=== PATIENT | male | born 1970 | race Caucasian/White ===

== ENCOUNTER 2017-10-02 19:52 | Emergency (ER) | payer SELFPAY, BC, OTHER, MEDICAID | END 2017-10-02 23:07 | disposition home or self-care (01) | LOC: M ED 19:52 | DX: J01.91 Acute recurrent sinusitis, unspecified (principal); I10 Essential (primary) hypertension; Z87.09 Personal history of other diseases of the respiratory system | CPT/HCPCS: 71046 ==

== ENCOUNTER 2018-11-05 19:28 | Emergency (ER) | payer MEDICAID, SELFPAY ==
[~2018-11-05] VITALS: Ht 177.8 cm; Wt 109.1 kg
[~2018-11-05 19:28] MED LIST: AUGM875T28 PO; BENA25CA4 PO
[2018-11-05] MEDS ORDERED: NAPR500T6 PO (19:34)
[2018-11-05] MEDS ORDERED: xyzal PO (19:34)
[2018-11-05] MEDS ORDERED: PENI500T PO (20:00)
[2018-11-05] MEDS ORDERED: LISI-538 PO (20:06)
[2018-11-05 20:11] VITALS: BP 170/101
[2018-11-05 20:13] VITALS: BP 152/98
[2018-11-05] MEDS ORDERED: LISINOPRIL 10 MG TAB PO ONE (20:15)
[2018-11-05] MEDS ORDERED: PENICILLIN V POTASSIUM 500 MG TAB PO ONE (20:15)
== END 2018-11-05 20:14 | disposition home or self-care (01) ==
LOC: M ED 19:28
DX: K08.89 Other specified disorders of teeth and supporting structures (principal); R13.10 Dysphagia, unspecified; I10 Essential (primary) hypertension; I51.9 Heart disease, unspecified; Z79.899 Other long term (current) drug therapy

== ENCOUNTER 2019-02-14 02:30 | Emergency (ER) | payer MEDICAID, OTHER ==
[~2019-02-14] VITALS: Ht 177.8 cm; Wt 102.0 kg
[~2019-02-14 02:30] MED LIST changes: +LISI-538 PO; +NAPR500T6 PO; +PENI500T PO; +xyzal PO
[2019-02-14] MEDS ORDERED: BENZOCAINE 20% GEL 9GM TUBE (ANBESOL MAX STRENGTH) TOP ONE (04:15)
[2019-02-14] MEDS ORDERED: LIDOCAINE 2% W/ EPINEPHRINE 1.7 ML DENTAL INJ SM ONE (04:15)
[2019-02-14] MEDS ORDERED: LISI-538 PO (04:28)
[2019-02-14] MEDS ORDERED: CLEO300C2 PO (04:28)
[2019-02-14] MEDS ORDERED: CLINDAMYCIN 150 MG CAP PO ONE (04:30)
[2019-02-14] MEDS ORDERED: LISINOPRIL 20 MG TAB PO ONE (04:30)
[2019-02-14 04:54] VITALS: BP_SYST 174; BP_SYST 178; BP_DIAS 92; BP_DIAS 96
== END 2019-02-14 04:56 | disposition home or self-care (01) ==
LOC: M ED 02:30
DX: S02.5XXA Fracture of tooth (traumatic), initial encounter for closed fracture (principal); X58.XXXA Exposure to other specified factors, initial encounter; Y92.9 Unspecified place or not applicable; Y93.9 Activity, unspecified; Y99.9 Unspecified external cause status

== ENCOUNTER 2022-11-24 17:29 | Emergency (ER) | payer OTHER ==
[~2022-11-24] VITALS: Ht 172.7 cm; Wt 118.7 kg
[~2022-11-24 17:29] MED LIST changes: +CLEO300C2 PO; -LISI-538 PO; +LISI20TA33 PO
[2022-11-24] MEDS ORDERED: CETI10CA13 PO (18:06)
[2022-11-24 18:24] LABS: HEMATOCRIT 41.9 % (42.0-52.0); HEMOGLOBIN 14.5 g/dl (13.5-17.5); MEAN CORPUSCULAR HEMOGLOBIN 28.9 pg (27.0-33.0); MEAN CORPUSCULAR HGB CONC 34.6 g/dl (32.0-36.5); MEAN CORPUSCULAR VOLUME 83.5 fl (80.0-96.0); PLATELET COUNT, AUTOMATED 194 10^3/uL (150-450); RED BLOOD COUNT 5.02 10^6/uL (4.30-6.10); WHITE BLOOD COUNT 4.8 10^3/uL (4.0-10.0)
[2022-11-24 18:51] LABS: ALBUMIN 3.9 G/DL (3.2-5.2); ALKALINE PHOSPHATASE 69 U/L (46-116); ALT/SGPT 91 U/L (7.0-40); AST/SGOT 60 U/L (<34); BILIRUBIN,DIRECT 0.7 MG/DL (<0.4); BILIRUBIN,TOTAL 2.5 MG/DL (0.3-1.2); BLOOD UREA NITROGEN 14 MG/DL (9-23); CALCIUM LEVEL 8.9 MG/DL (8.5-10.1); CARBON DIOXIDE LEVEL 29 MMOL/L (20-31); CHLORIDE LEVEL 103 MMOL/L (98-107); CREATININE FOR GFR 0.97 MG/DL (0.70-1.30); GLOMERULAR FILTRATION RATE > 60.0 (>56); GLUCOSE, FASTING 151 MG/DL (60-100); POTASSIUM SERUM 3.8 MMOL/L (3.5-5.1); SODIUM LEVEL 138 MMOL/L (136-145); TOTAL PROTEIN 6.5 G/DL (5.7-8.2)
[2022-11-24] MEDS ORDERED: LISI20TA33 PO (19:08)
[2022-11-24 20:08] VITALS: BP 130/75
[2022-11-24 20:09] VITALS: BP 130/75
== END 2022-11-24 20:31 | disposition home or self-care (01) ==
LOC: M ED 17:29
DX: I10 Essential (primary) hypertension (principal); J45.909 Unspecified asthma, uncomplicated; Z79.899 Other long term (current) drug therapy

== ENCOUNTER 2022-12-27 12:50 | Emergency (ER) | payer OTHER ==
[~2022-12-27] VITALS: Ht 172.7 cm; Wt 116.0 kg
[~2022-12-27 12:50] MED LIST changes: +CETI10CA13 PO
[2022-12-27] MEDS ORDERED: LOPE1CAP5 PO (13:26)
[2022-12-27] MEDS ORDERED: PEPT262T2 PO (13:26)
[2022-12-27 16:28] VITALS: BP 141/82; TEMP 97; O2SAT 97
== END 2022-12-27 16:30 | disposition home or self-care (01) ==
LOC: M ED 12:50
DX: J06.9 Acute upper respiratory infection, unspecified (principal); B34.9 Viral infection, unspecified; G47.33 Obstructive sleep apnea (adult) (pediatric); Z79.899 Other long term (current) drug therapy

== ENCOUNTER 2023-01-11 15:15 | Emergency (ER) | payer OTHER ==
[~2023-01-11] VITALS: Ht 172.7 cm; Wt 116.0 kg
[~2023-01-11 15:15] MED LIST changes: +LOPE1CAP5 PO; +PEPT262T2 PO
[2023-01-11] MEDS ORDERED: NITROGLYCERIN 0.4MG SUBL TABLET SL PRN (16:35)
[2023-01-11] MEDS ORDERED: ASPIRIN 81MG CHEW TABLET PO ONE (16:35)
[2023-01-11 17:05] LABS: BASO % 0.7 % (0.0-1.0); EOS % 0.7 % (0.0-3.0); HEMATOCRIT 43.9 % (42.0-52.0); HEMOGLOBIN 15.3 g/dl (13.5-17.5); LYMPH # 1.4 10^3/uL (1.5-5.0); LYMPH % 25.1 % (24.0-44.0); MEAN CORPUSCULAR HEMOGLOBIN 28.7 pg (27.0-33.0); MEAN CORPUSCULAR HGB CONC 34.9 g/dl (32.0-36.5); MEAN CORPUSCULAR VOLUME 82.4 fl (80.0-96.0); MONO # 0.4 10^3/uL (0.0-0.8); MONO % 6.4 % (2.0-8.0); NEUTROPHILS # 3.6 10^3/uL (1.5-8.5); NEUTROPHILS % 66.7 % (36.0-66.0); PLATELET COUNT, AUTOMATED 203 10^3/uL (150-450); RED BLOOD COUNT 5.33 10^6/uL (4.30-6.10); WHITE BLOOD COUNT 5.5 10^3/uL (4.0-10.0)
[2023-01-11 17:33] LABS: ALBUMIN 4.1 G/DL (3.2-5.2); ALKALINE PHOSPHATASE 72 U/L (46-116); ALT/SGPT 64 U/L (7.0-40); AST/SGOT 30 U/L (<34); BILIRUBIN,DIRECT 0.7 MG/DL (<0.4); BILIRUBIN,TOTAL 2.6 MG/DL (0.3-1.2); BLOOD UREA NITROGEN 12 MG/DL (9-23); CARBON DIOXIDE LEVEL 26 MMOL/L (20-31); CHLORIDE LEVEL 103 MMOL/L (98-107); CK-MB VALUE MASS 8.2 NG/ML (<3.6); CPK CREATINE PHOSPHOKINASE 345 U/L (46-171); CREATININE FOR GFR 0.91 MG/DL (0.70-1.30); GLOMERULAR FILTRATION RATE > 60.0 (>56); GLUCOSE, FASTING 104 MG/DL (60-100); MB/CK RELATIVE INDEX 2.37 (< OR =4); POTASSIUM SERUM 4.2 MMOL/L (3.5-5.1); SODIUM LEVEL 137 MMOL/L (136-145)
[2023-01-11 17:35] LABS: FREE T4 1.11 NG/DL (0.89-1.76); THYROID STIMULATING HORMONE 2.731 uIU/ML (0.55-4.78)
[2023-01-11 17:37] LABS: INR 0.96
[2023-01-11] MEDS ORDERED: ISOVUE-370 76% 100ML VIAL As Ordered ONE (17:37)
[2023-01-11 17:38] LABS: PARTIAL THROMBOPLASTIN TIME 28.5 SECONDS (24.8-34.2)
[2023-01-11 17:52] LABS: RSV AMPLIFICATION NEGATIVE (NEGATIVE)
[2023-01-11 18:33] LABS: CK-MB VALUE MASS 8.1 NG/ML (<3.6)
[2023-01-11 18:34] LABS: CPK CREATINE PHOSPHOKINASE 304 U/L (46-171); MB/CK RELATIVE INDEX 2.66 (< OR =4)
[2023-01-11 20:02] VITALS: O2SAT 98
[2023-01-11 20:13] VITALS: BP 164/92; TEMP 98.2; O2SAT 98
== END 2023-01-11 20:16 | disposition home or self-care (01) ==
LOC: M ED 15:15
DX: R06.02 Shortness of breath (principal); I10 Essential (primary) hypertension; G47.30 Sleep apnea, unspecified; J45.909 Unspecified asthma, uncomplicated; Z79.899 Other long term (current) drug therapy
CPT/HCPCS: 36415; 70450; 71046; 71275; 80048; 80076; 82550; 82553; 84439; 84443; 85025; 85610; 85730; 87631; 93005; 93041; 94760; 99285; Q9967

== ENCOUNTER → 2024-11-19 | Outpatient (REF) | payer OTHER ==
[~2024-11-19] MED LIST changes: +NAPR-1405 PO; -NAPR500T6 PO
== END ==
LOC: M SFHCLERA 16:05
PROVIDERS: ATTEND Internal Medicine
DX: Z00.01 Encounter for general adult medical examination with abnormal findings (principal); I10 Essential (primary) hypertension

== ENCOUNTER → 2024-11-26 | Outpatient (CLI) | payer OTHER ==
[2024-11-26 17:14] LABS: APPEARANCE, URINE CLEAR (CLEAR); BACTERIA, URINE AUTO NEGATIVE (NEGATIVE); BILIRUBIN, URINE AUTO NEGATIVE (NEGATIVE); BLOOD, URINE BLOOD NEGATIVE (NEGATIVE); COLOR, URINE STRAW (YELLOW); GLUCOSE, URINE (UA) AUTO NEGATIVE (NEGATIVE); KETONE, URINE AUTO NEGATIVE (NEGATIVE); LEUKOCYTE ESTERASE, URINE AUTO NEGATIVE (NEGATIVE); NITRITE, URINE AUTO NEGATIVE (NEGATIVE); PROTEIN, URINE AUTO NEGATIVE (NEGATIVE); RBC, URINE AUTO 0 /HPF (0-3); SPECIFIC GRAVITY URINE AUTO 1.008 (1.002-1.035); SQUAMOUS EPITHELIAL CELL UR AU 0 /HPF (0-6); UROBILINOGEN, URINE AUTO 0.2 mg/dL (0.0-2.0); WBC, URINE AUTO 0 /HPF (0-3)
[2024-11-26 17:16] LABS: BASO # 0.1 10^3/uL (0.0-0.2); BASO % 0.7 % (0.0-1.0); EOS # 0.1 10^3/uL (0.0-0.5); EOS % 0.7 % (0.0-3.0); HEMATOCRIT 42.4 % (42.0-52.0); HEMOGLOBIN 14.3 g/dl (13.5-17.5); LYMPH # 1.5 10^3/uL (1.5-5.0); LYMPH % 18.3 % (24.0-44.0); MEAN CORPUSCULAR HEMOGLOBIN 30.2 pg (27.0-33.0); MEAN CORPUSCULAR HGB CONC 33.7 g/dl (32.0-36.5); MEAN CORPUSCULAR VOLUME 89.6 fl (80.0-96.0); MONO # 0.4 10^3/uL (0.0-0.8); NEUTROPHILS % 74.9 % (36.0-66.0); PLATELET COUNT, AUTOMATED 229 10^3/uL (150-450); RED BLOOD COUNT 4.73 10^6/uL (4.30-6.10)
[2024-11-26 17:46] LABS: ALBUMIN 3.7 G/DL (3.2-5.2); ALKALINE PHOSPHATASE 74 U/L (40-129); ALT/SGPT 28 U/L (7.0-40); AST/SGOT 21 U/L (<34); BILIRUBIN,TOTAL 1.5 MG/DL (0.3-1.2); BLOOD UREA NITROGEN 19 MG/DL (9-23); CALCIUM LEVEL 9.2 MG/DL (8.5-10.1); CARBON DIOXIDE LEVEL 30 MMOL/L (20-31); CHLORIDE LEVEL 102 MMOL/L (98-107); CHOLESTEROL LEVEL 154 MG/DL (<200); CHOLESTEROL RISK RATIO 2.93 (<5); CREATININE FOR GFR 0.88 MG/DL (0.70-1.30); GLOMERULAR FILTRATION RATE > 90.0 (>56); GLUCOSE, FASTING 130 MG/DL (60-100); HDL CHOLESTEROL 52.4 MG/DL (>40); LDL CHOLESTEROL 75.4 MG/DL (<100); NON-HDL-C 101.6 MG/DL; POTASSIUM SERUM 4.3 MMOL/L (3.5-5.1); PSA SCREENING 3.16 NG/ML (< 4.00); SODIUM LEVEL 140 MMOL/L (136-145); TOTAL PROTEIN 6.5 G/DL (5.7-8.2); TRIGLYCERIDES LEVEL 131 MG/DL (<150)
== END ==
LOC: M PLALAB 15:13
PROVIDERS: ATTEND Internal Medicine
DX: Z00.01 Encounter for general adult medical examination with abnormal findings (principal); I10 Essential (primary) hypertension

== ENCOUNTER → 2025-02-25 | Outpatient (CLI) | payer OTHER ==
[~2025-02-25] MED LIST changes: +FLUTISP; +IBUP1TAB6 PO; +LOSA25TA13; +METH-1165 PO; +NAPR-837 PO
== END ==
LOC: M PLAIMG 12:45
PROVIDERS: ATTEND Internal Medicine
DX: J30.9 Allergic rhinitis, unspecified (principal)

== ENCOUNTER 2025-03-11 13:08 | Emergency (ER) | payer OTHER ==
[~2025-03-11] VITALS: Ht 172.7 cm; Wt 95.3 kg
[~2025-03-11 13:08] MED LIST changes: -FLUTISP; +FLUTISP NARES; -IBUP1TAB6 PO; +SFHIBU600 PO
[2025-03-11] MEDS ORDERED: PROA1AER2 INH (13:21)
[2025-03-11] MEDS ORDERED: DICL100G10 TOP (13:21)
[2025-03-11] MEDS ORDERED: POLY510P14 PO (13:21)
[2025-03-11] MEDS ORDERED: LIDO1PAD TOP (13:21)
[2025-03-11] MEDS ORDERED: FEXO-112 PO (13:21)
[2025-03-11] MEDS ORDERED: AMOX875T2 PO (13:44)
[2025-03-11] MEDS: AUGMENTIN 875 MG TAB PO ONE (13:48)
[2025-03-11] MEDS: TETANUS/DIPHTH/ACEL. PERTUSSIS 0.5 ML SYR IM.IMMUN ONE (13:49)
[2025-03-11 14:05] VITALS: BP 158/87; TEMP 98.4; O2SAT 98
[2025-03-12] MEDS ORDERED: AMOX875T2 PO (14:37)
[2025-03-12] MEDS ORDERED: LOSA50TA28 PO (14:37)
== END 2025-03-11 14:08 | disposition home or self-care (01) ==
LOC: M ED 13:41
DX: S81.851A Open bite, right lower leg, initial encounter (principal); W54.0XXA Bitten by dog, initial encounter; Y92.410 Unspecified street and highway as the place of occurrence of the external cause; Y93.89 Activity, other specified; Y99.9 Unspecified external cause status; I10 Essential (primary) hypertension; G47.30 Sleep apnea, unspecified; Z79.899 Other long term (current) drug therapy

== ENCOUNTER 2025-03-12 12:58 | Emergency (ER) | payer OTHER ==
[~2025-03-12] VITALS: Ht 172.7 cm; Wt 96.4 kg
[~2025-03-12 12:58] MED LIST changes: +AMOX875T2 PO; +DICL100G10 TOP; +FEXO-112 PO; +LIDO1PAD TOP; +POLY510P14 PO; +PROA1AER2 INH
[2025-03-12 13:53] LABS: BASO # 0.0 10^3/uL (0.0-0.2); BASO % 0.9 % (0.0-1.0); EOS # 0.1 10^3/uL (0.0-0.5); EOS % 1.1 % (0.0-3.0); LYMPH # 1.0 10^3/uL (1.5-5.0); LYMPH % 21.5 % (24.0-44.0); MONO # 0.3 10^3/uL (0.0-0.8); MONO % 7.5 % (2.0-8.0); NEUTROPHILS # 3.1 10^3/uL (1.5-8.5); NEUTROPHILS % 68.8 % (36.0-66.0); PLATELET COUNT, AUTOMATED 180 10^3/uL (150-450)
[2025-03-12 14:09] LABS: INR 0.94
[2025-03-12 14:24] LABS: CK-MB VALUE MASS 5.4 NG/ML (<3.6)
[2025-03-12 14:29] LABS: ALT/SGPT 23.0 U/L (7.0-40); AST/SGOT 26.0 U/L (<34); CALCIUM LEVEL 9.3 MG/DL (8.5-10.1); CARBON DIOXIDE LEVEL 28.0 MMOL/L (20-31); CHLORIDE LEVEL 105.0 MMOL/L (98-107); CREATININE FOR GFR 1.01 MG/DL (0.70-1.30); GLOMERULAR FILTRATION RATE 88.4 (>56); POTASSIUM SERUM 4.6 MMOL/L (3.5-5.1); SODIUM LEVEL 141.0 MMOL/L (136-145)
[2025-03-12 14:30] VITALS: BP 167/96; O2SAT 97
[2025-03-12 14:33] LABS: CPK CREATINE PHOSPHOKINASE 153.0 U/L (46-171); MB/CK RELATIVE INDEX 3.52 (< OR =4)
[2025-03-12] MEDS ORDERED: AMOX875T2 PO (14:37)
[2025-03-12] MEDS ORDERED: LOSA50TA28 PO (14:37)
[2025-03-12] MEDS ORDERED: HOME MED LIST COMPLETE! XX SCH (14:40)
[2025-03-12 15:06] VITALS: TEMP 98.3
[2025-03-12 15:14] LABS: CK-MB VALUE MASS 5.2 NG/ML (<3.6)
[2025-03-12 15:18] LABS: CPK CREATINE PHOSPHOKINASE 148.0 U/L (46-171); MB/CK RELATIVE INDEX 3.51 (< OR =4)
== END 2025-03-12 15:10 | disposition home or self-care (01) ==
LOC: M ED 12:58
DX: R07.89 Other chest pain (principal); I10 Essential (primary) hypertension; Z79.899 Other long term (current) drug therapy

== ENCOUNTER 2025-04-11 18:38 | Emergency (ER) | payer OTHER ==
[~2025-04-11] VITALS: Ht 172.7 cm; Wt 96.4 kg
[~2025-04-11 18:38] MED LIST changes: +LOSA50TA28 PO
[2025-04-12] MEDS: ACETAMINOPHEN 500 MG TAB PO ONE (00:48)
[2025-04-12 01:40] VITALS: BP 123/75; TEMP 96.8; O2SAT 98
== END 2025-04-12 01:45 | disposition home or self-care (01) ==
LOC: M ED 18:38
DX: S93.621A Sprain of tarsometatarsal ligament of right foot, initial encounter (principal); S93.521A Sprain of metatarsophalangeal joint of right great toe, initial encounter; S96.111A Strain of muscle and tendon of long extensor muscle of toe at ankle and foot level, right foot, initial encounter; S90.31XA Contusion of right foot, initial encounter; W23.2XXA Caught, crushed, jammed or pinched between a moving and stationary object, initial encounter; Y92.830 Public park as the place of occurrence of the external cause; Y93.9 Activity, unspecified; Y99.9 Unspecified external cause status; G47.30 Sleep apnea, unspecified; M19.071 Primary osteoarthritis, right ankle and foot; M77.31 Calcaneal spur, right foot; M77.51 Other enthesopathy of right foot and ankle; Z79.899 Other long term (current) drug therapy